=== PATIENT | male | born 1965 | race Caucasian/White ===

== ENCOUNTER 2019-11-28 09:29 | Emergency (ER) | payer MEDICAID ==
[~2019-11-28] VITALS: Ht 172.7 cm; Wt 75.0 kg
[~2019-11-28 09:29] MED LIST: GABA-531 MT
[2019-11-28] MEDS ORDERED: SODIUM CHLORIDE 0.9% 1,000 ML IV ONE ×2 (10:30→11:30)
[2019-11-28] MEDS ORDERED: CHLORDIAZEPOXIDE 25MG CAPSULE PO ONE (10:30)
[2019-11-28] MEDS ORDERED: LORAZEPAM 1MG TABLET PO ONE (10:30)
[2019-11-28] MEDS ORDERED: ONDANSETRON HCL 4MG/2ML INJ IV STA (10:30)
[2019-11-28] MEDS ORDERED: ACETAMINOPHEN 325MG TABLET PO ONE (10:45)
[2019-11-28 11:33] LABS: CHLORIDE 91 mEq/L (98-107); EOSINOPHILS % 0.8 % (0.0-5.0); HEMATOCRIT. 40.3 % (42.0-52.0); LYMPHOCYTES % 17.7 % (20.0-50.0); MEAN CORPUSCULAR HEMOGLOBIN 34.5 pg (28.0-32.0); MEAN CORPUSCULAR VOLUME 99.4 fL (80.0-94.0); MONOCYTES % 12.3 % (2.0-8.0); NEUTROPHILS % 68.2 % (40.0-76.0); PLATELET 150 x1000/uL (130-400); RED BLOOD CELL COUNT 4.06 mill/uL (4.7-6.1); RED CELL DISTRIBUTION WIDTH 12.7 % (11.6-14.6)
[2019-11-28 11:38] LABS: ETHANOL BLOOD 120 mg/dL
[2019-11-28 13:50] LABS: CLARITY URINE CLEAR (CLEAR); COLOR URINE DARK YELLOW (YELLOW); KETONES URINE 4+ (NEGATIVE); LEUKOCYTE ESTERASE URINE NEGATIVE (NEGATIVE); NITRITE URINE NEGATIVE (NEGATIVE); OCCULT BLOOD URINE TRACE (NEGATIVE); PROTEIN URINE 2+ (NEGATIVE); SPECIFIC GRAVITY URINE 1.025 (1.005-1.030)
[2019-11-28 14:00] VITALS: BP 130/88
[2019-11-28 14:48] LABS: *AMPHETAMINES SCREEN URINE NEGATIVE (NEGATIVE); *BARBITURATES SCREEN URINE NEGATIVE (NEGATIVE); *BENZODIAZEPINES SCREEN URINE PRESUMTIVE POSITIVE (NEGATIVE); *COCAINE SCREEN URINE NEGATIVE (NEGATIVE); CANNABINOID URINE SCREEN NEGATIVE (NEGATIVE)
[2019-11-28 14:49] LABS: METHADONE URINE SCREEN NEGATIVE (NEGATIVE); OPIATES URINE SCREEN NEGATIVE (NEGATIVE); PHENCYCLIDINE URINE SCREEN NEGATIVE (NEGATIVE)
[2019-11-28 14:49] LABS: CREATINE KINASE 213 IU/L (39-308)
== END 2019-11-28 14:32 | disposition home or self-care (01) ==
LOC: ER 09:41
DX: K85.90 Acute pancreatitis without necrosis or infection, unspecified (principal); F10.239 Alcohol dependence with withdrawal, unspecified; G40.909 Epilepsy, unspecified, not intractable, without status epilepticus; F20.9 Schizophrenia, unspecified; F32.9 Major depressive disorder, single episode, unspecified; R94.5 Abnormal results of liver function studies; Y90.6 Blood alcohol level of 120-199 mg/100 ml; W18.2XXA Fall in (into) shower or empty bathtub, initial encounter; Y93.89 Activity, other specified; Y92.018 Other place in single-family (private) house as the place of occurrence of the external cause
CPT/HCPCS: 36415; 74176; 80053; 80305; 80320; 81003; 82550; 83690; 85025; 96374; 99284; J2405; J7030; G0480

== ENCOUNTER 2020-06-09 21:03 | Emergency (ER) | payer MEDICAID ==
[~2020-06-09] VITALS: Ht 170.2 cm; Wt 70.0 kg
[2020-06-09] MEDS ORDERED: FAMOTIDINE 20MG/2ML VIAL IV STA (22:52)
[2020-06-09] MEDS ORDERED: ONDANSETRON HCL 4MG/2ML INJ IV STA (22:52)
[2020-06-09] MEDS ORDERED: MAGNESIUM 2 G PREMIX 50 ML IV ONE (23:00)
[2020-06-09] MEDS ORDERED: LORAZEPAM 2MG/ML CPJ IV ONE (23:00)
[2020-06-09] MEDS ORDERED: FOLIC ACID 1 MG, THIAMINE HCL 100 MG, MVI, ADULT NO.1 10 ML in DEXTROSE 5% WATER 1,000 ML IV ONE ×4 (23:00)
[2020-06-09 23:46] LABS: CHLORIDE 96 mEq/L (98-107)
[2020-06-09 23:50] LABS: ETHANOL BLOOD < 10 mg/dL; HEMATOCRIT. 38.9 % (42.0-52.0); HEMOGLOBIN. 13.2 g/dL (14.0-18.0); MEAN CORPUSCULAR HEMOGLOBIN 35.1 pg (28.0-32.0); MEAN CORPUSCULAR VOLUME 103.8 fL (80.0-94.0); MEAN PLATELET VOLUME 7.3 fl (7.4-10.4); PLATELET 117 x1000/uL (130-400); RED BLOOD CELL COUNT 3.74 mill/uL (4.7-6.1); RED CELL DISTRIBUTION WIDTH 14.1 % (11.6-14.6)
[2020-06-10 01:06] LABS: PLATELET ESTIMATE DECREASED
[2020-06-10 03:12] VITALS: BP 146/98
== END 2020-06-10 03:24 | disposition home or self-care (01) ==
LOC: ER 21:15
DX: F10.239 Alcohol dependence with withdrawal, unspecified (principal); K85.20 Alcohol induced acute pancreatitis without necrosis or infection; Y90.0 Blood alcohol level of less than 20 mg/100 ml
CPT/HCPCS: 36415; 80053; 80320; 83690; 85025; 93005; 96365; 96366; 96368; 96375; 99284; J2060; J2405; J3411; J3475; J3490; J7070; G0480

== ENCOUNTER 2020-06-30 09:36 | Inpatient (IN) | payer MEDICAID ==
[~2020-06-30] VITALS: Ht 167.6 cm; Wt 73.9 kg
[2020-06-30] MEDS ORDERED: LORAZEPAM 2MG/ML CPJ IV ONE ×2 (10:00→14:30)
[2020-06-30] MEDS ORDERED: FOLIC ACID 1 MG, THIAMINE HCL 100 MG, MVI, ADULT NO.1 10 ML in DEXTROSE 5% WATER 1,000 ML IV ONE ×4 (10:00)
[2020-06-30] MEDS ORDERED: ONDANSETRON HCL 4MG/2ML INJ IV ONE (10:00)
[2020-06-30] MEDS ORDERED: MAGNESIUM 2 G PREMIX 50 ML IV ONE (10:00)
[2020-06-30 10:34] LABS: EOSINOPHILS % 0.5 % (0.0-5.0); HEMATOCRIT. 37.3 % (42.0-52.0); HEMOGLOBIN. 12.9 g/dL (14.0-18.0); LYMPHOCYTES % 15.6 % (20.0-50.0); MEAN CORPUSCULAR HEMOGLOBIN 35.3 pg (28.0-32.0); MEAN CORPUSCULAR VOLUME 102.4 fL (80.0-94.0); MEAN PLATELET VOLUME 7.4 fl (7.4-10.4); MONOCYTES % 6.2 % (2.0-8.0); NEUTROPHILS % 76.7 % (40.0-76.0); PLATELET 267 x1000/uL (130-400); RED BLOOD CELL COUNT 3.65 mill/uL (4.7-6.1); RED CELL DISTRIBUTION WIDTH 14.2 % (11.6-14.6)
[2020-06-30 10:43] LABS: CHLORIDE 100 mEq/L (98-107)
[2020-06-30 10:48] LABS: ETHANOL BLOOD 20 mg/dL
[2020-06-30] MEDS ORDERED: CHLORDIAZEPOXIDE 25MG CAPSULE PO ONE (11:00)
[2020-06-30 12:58] LABS: CLARITY URINE CLEAR (CLEAR); COLOR URINE YELLOW (YELLOW); KETONES URINE 4+ (NEGATIVE); LEUKOCYTE ESTERASE URINE NEGATIVE (NEGATIVE); NITRITE URINE NEGATIVE (NEGATIVE); OCCULT BLOOD URINE NEGATIVE (NEGATIVE); PROTEIN URINE NEGATIVE (NEGATIVE); SPECIFIC GRAVITY URINE 1.026 (1.005-1.030); UROBILINOGEN URINE 0.2 E.U./dL (0.2-1.0)
[2020-06-30 13:18] LABS: *BARBITURATES SCREEN URINE NEGATIVE (NEGATIVE)
[2020-06-30 13:19] LABS: *AMPHETAMINES SCREEN URINE NEGATIVE (NEGATIVE); *BENZODIAZEPINES SCREEN URINE NEGATIVE (NEGATIVE); *COCAINE SCREEN URINE NEGATIVE (NEGATIVE); METHADONE URINE SCREEN NEGATIVE (NEGATIVE); OPIATES URINE SCREEN NEGATIVE (NEGATIVE); PHENCYCLIDINE URINE SCREEN NEGATIVE (NEGATIVE)
[2020-06-30 13:20] LABS: CANNABINOID URINE SCREEN NEGATIVE (NEGATIVE)
[2020-06-30 15:22] VITALS: BP 140/94
[2020-06-30 15:37] VITALS: BP 140/94
[2020-06-30] MEDS ORDERED: IPRATROPIUM/ALBUTEROL 0.5-3(2.5)MG/3ML NEB HHN PRN (17:00)
[2020-06-30] MEDS ORDERED: ACETAMINOPHEN 325MG TABLET PO PRN ×2 (17:00)
[2020-06-30] MEDS ORDERED: ONDANSETRON HCL 4MG/2ML INJ IV PRN (17:00)
[2020-06-30] MEDS ORDERED: DOCUSATE SODIUM 100MG CAPSULE PO PRN (17:00)
[2020-06-30] MEDS ORDERED: CLONIDINE 0.1MG TABLET PO PRN (17:00)
[2020-06-30] MEDS ORDERED: HYDROCODONE/ACETAMINOPHEN 5/325MG TABLET PO PRN (17:00)
[2020-06-30] MEDS: SODIUM CHLORIDE 0.9% 1,000 ML IV SCH (17:38)
[2020-06-30 17:55] VITALS: BP 136/88
[2020-06-30 18:21] LABS: PHOSPHORUS 2.6 mg/dL (2.5-4.9)
[2020-06-30 18:48] LABS: HEPATITIS B SURFACE ANTIGEN NEGATIVE
[2020-06-30 18:49] LABS: VITAMIN B12 SERUM 742 pg/mL (211-911)
[2020-06-30] MEDS ORDERED: MVI, ADULT NO.1 10 ML, FOLIC ACID 1 MG, THIAMINE HCL 100 MG in SODIUM CHLORIDE 0.9% 1,0... IV NR ×4 (19:00)
[2020-06-30 19:18] LABS: HEPATITIS A AB IGM NEGATIVE (NEGATIVE)
[2020-06-30 19:26] LABS: FERRITIN 1963 ng/mL (22-322)
[2020-06-30 20:00] VITALS: BP 138/99
[2020-06-30 22:00] VITALS: BP 140/88
[2020-06-30] MEDS: CHLORDIAZEPOXIDE 25MG CAPSULE PO SCH (22:07)
[2020-07-01] VITALS (12 sets, daily range): BP systolic 133–149; BP diastolic 56–120
[2020-07-01] MEDS: SODIUM CHLORIDE 0.9% 1,000 ML IV SCH ×2 (02:50→22:30)
[2020-07-01] MEDS: LORAZEPAM 1MG TABLET PO PRN ×3 (03:38→16:40)
[2020-07-01] MEDS: CHLORDIAZEPOXIDE 25MG CAPSULE PO SCH ×3 (05:48→21:09)
[2020-07-01 07:06] LABS: BASOPHILS % 0.7 % (0.0-2.0); EOSINOPHILS % 1.8 % (0.0-5.0); HEMATOCRIT. 32.5 % (42.0-52.0); HEMOGLOBIN. 11.1 g/dL (14.0-18.0); LYMPHOCYTES % 17.8 % (20.0-50.0); MEAN CORPUSCULAR HEMOGLOBIN 35.3 pg (28.0-32.0); MEAN PLATELET VOLUME 7.7 fl (7.4-10.4); MONOCYTES % 8.9 % (2.0-8.0); NEUTROPHILS % 70.8 % (40.0-76.0); PLATELET 184 x1000/uL (130-400); RED BLOOD CELL COUNT 3.16 mill/uL (4.7-6.1); RED CELL DISTRIBUTION WIDTH 13.8 % (11.6-14.6)
[2020-07-01 07:32] LABS: CHLORIDE 102 mEq/L (98-107)
[2020-07-01] MEDS: GABAPENTIN 300MG CAPSULE PO SCH ×3 (08:44→18:04)
[2020-07-01] MEDS: THIAMINE HCL 100MG TABLET PO SCH (08:44)
[2020-07-01] MEDS: FOLIC ACID 1MG TABLET PO SCH (08:44)
[2020-07-01] MEDS: MULTIVITAMINS,THER W-MINERALS TABLET PO SCH (08:44)
[2020-07-01] MEDS ORDERED: MAGNESIUM 4 G PREMIX 100 ML IV NR (13:30)
[2020-07-01] MEDS ORDERED: NALT380S2 IM (14:25)
[2020-07-01] MEDS ORDERED: OLAN10TA32 PO (14:25)
[2020-07-01] MEDS ORDERED: BENZ0.5T43 MT (14:25)
[2020-07-01] MEDS ORDERED: FLUV100C2 PO (14:25)
[2020-07-01] MEDS ORDERED: MIRT-91 PO (14:25)
[2020-07-01] MEDS ORDERED: NON FORMULARY PATIENT HOME MED XX SCH (14:45)
[2020-07-01] MEDS: OLANZAPINE 10MG TABLET PO SCH (20:40)
[2020-07-01] MEDS: MIRTAZAPINE 15MG TABLET PO SCH (20:40)
[2020-07-01] MEDS: BENZTROPINE MESYLATE 0.5MG TABLET PO SCH (20:42)
[2020-07-02] VITALS (12 sets, daily range): BP systolic 103–136; BP diastolic 72–93
[2020-07-02] MEDS: CHLORDIAZEPOXIDE 25MG CAPSULE PO SCH ×3 (05:21→22:39)
[2020-07-02 06:20] LABS: BASOPHILS % 0.7 % (0.0-2.0); EOSINOPHILS % 2.4 % (0.0-5.0); HEMATOCRIT. 34.4 % (42.0-52.0); HEMOGLOBIN. 11.9 g/dL (14.0-18.0); LYMPHOCYTES % 16.5 % (20.0-50.0); MEAN CORPUSCULAR HEMOGLOBIN 35.8 pg (28.0-32.0); MEAN CORPUSCULAR VOLUME 103.1 fL (80.0-94.0); MEAN PLATELET VOLUME 7.8 fl (7.4-10.4); MONOCYTES % 7.6 % (2.0-8.0); NEUTROPHILS % 72.8 % (40.0-76.0); PLATELET 167 x1000/uL (130-400); RED BLOOD CELL COUNT 3.33 mill/uL (4.7-6.1)
[2020-07-02 06:51] LABS: CHLORIDE 105 mEq/L (98-107)
[2020-07-02] MEDS: THIAMINE HCL 100MG TABLET PO SCH (09:01)
[2020-07-02] MEDS: LORAZEPAM 1MG TABLET PO PRN (09:01)
[2020-07-02] MEDS: FOLIC ACID 1MG TABLET PO SCH (09:01)
[2020-07-02] MEDS: MULTIVITAMINS,THER W-MINERALS TABLET PO SCH (09:01)
[2020-07-02] MEDS: GABAPENTIN 300MG CAPSULE PO SCH ×3 (09:01→17:29)
[2020-07-02] MEDS: SODIUM CHLORIDE 0.9% 1,000 ML IV SCH ×2 (09:06→20:04)
[2020-07-02] MEDS: MIRTAZAPINE 15MG TABLET PO SCH (21:02)
[2020-07-02] MEDS: OLANZAPINE 10MG TABLET PO SCH (21:02)
[2020-07-02] MEDS: BENZTROPINE MESYLATE 0.5MG TABLET PO SCH (21:12)
[2020-07-03] VITALS (10 sets, daily range): BP systolic 125–139; BP diastolic 64–94
[2020-07-03] MEDS: SODIUM CHLORIDE 0.9% 1,000 ML IV SCH ×2 (04:13→14:50)
[2020-07-03] MEDS: CHLORDIAZEPOXIDE 25MG CAPSULE PO SCH ×2 (06:16→13:14)
[2020-07-03] MEDS: THIAMINE HCL 100MG TABLET PO SCH (09:33)
[2020-07-03] MEDS: MULTIVITAMINS,THER W-MINERALS TABLET PO SCH (09:33)
[2020-07-03] MEDS: FOLIC ACID 1MG TABLET PO SCH (09:33)
[2020-07-03] MEDS: GABAPENTIN 300MG CAPSULE PO SCH ×2 (09:33→13:14)
[2020-07-03] MEDS ORDERED: CHLO10CA71 MT (11:56)
[2020-07-03 12:00] LABS: BASOPHILS % 0.6 % (0.0-2.0); EOSINOPHILS % 2.8 % (0.0-5.0); HEMATOCRIT. 34.5 % (42.0-52.0); HEMOGLOBIN. 12.1 g/dL (14.0-18.0); LYMPHOCYTES % 18.4 % (20.0-50.0); MEAN CORPUSCULAR HEMOGLOBIN 36.4 pg (28.0-32.0); MEAN PLATELET VOLUME 8.1 fl (7.4-10.4); MONOCYTES % 8.1 % (2.0-8.0); NEUTROPHILS % 70.1 % (40.0-76.0); PLATELET 167 x1000/uL (130-400); RED BLOOD CELL COUNT 3.32 mill/uL (4.7-6.1); RED CELL DISTRIBUTION WIDTH 13.7 % (11.6-14.6)
[2020-07-03 12:09] LABS: CHLORIDE 109 mEq/L (98-107)
== END 2020-07-03 15:57 | disposition home or self-care (01) | DRG 775 ==
LOC: ER 09:45 → 3WST 10:55 → EDBEDREQTM 10:57 → EDBEDREQ 10:57 → ENRESERV 14:34
PROVIDERS: ADMIT Internal Medicine; ATTEND Internal Medicine
DX: F10.10 Alcohol abuse, uncomplicated (principal); R74.0 Nonspecific elevation of levels of transaminase and lactic acid dehydrogenase [LDH]; D53.9 Nutritional anemia, unspecified; T73.0XXA Starvation, initial encounter; R82.4 Acetonuria; F32.9 Major depressive disorder, single episode, unspecified; F20.9 Schizophrenia, unspecified; F43.10 Post-traumatic stress disorder, unspecified; R25.1 Tremor, unspecified; R81 Glycosuria; K76.0 Fatty (change of) liver, not elsewhere classified; Y90.9 Presence of alcohol in blood, level not specified; R56.9 Unspecified convulsions
CPT/HCPCS: 36415; 71045; 76700; 80048; 80053; 80061; 80076; 80305; 80307; 80320; 80329; 81003; 82550; 82607; 82728; 82746; 83036; 83540; 83550; 83735; 84100; 84443; 85025; 86705; 86709; 86803; 87340; 93005; 99291; J2060; J2405; J3411; J3475; J3490; J7030; J7070; G0480

== ENCOUNTER 2020-07-28 16:54 | Emergency (ER) | payer MEDICAID ==
[~2020-07-28] VITALS: Ht 167.6 cm; Wt 68.0 kg
[~2020-07-28 16:54] MED LIST changes: +BENZ0.5T43 MT; +CHLO10CA71 MT; +FLUV100C2 PO; +MIRT-91 PO; +NALT380S2 IM; +OLAN10TA32 PO
[2020-07-28] MEDS ORDERED: SODIUM CHLORIDE 0.9% 1,000 ML IV ONE (17:26)
[2020-07-28] MEDS ORDERED: ONDANSETRON HCL 4MG/2ML INJ IV STA (17:26)
[2020-07-28] MEDS ORDERED: FAMOTIDINE 20MG/2ML VIAL IV STA (17:26)
[2020-07-28] MEDS ORDERED: LORAZEPAM 2MG/ML CPJ IV ONE (17:30)
[2020-07-28 17:54] LABS: BASOPHILS % 0.7 % (0.0-2.0); EOSINOPHILS % 0.4 % (0.0-5.0); HEMATOCRIT. 37.2 % (42.0-52.0); HEMOGLOBIN. 12.9 g/dL (14.0-18.0); LYMPHOCYTES % 14.2 % (20.0-50.0); MEAN CORPUSCULAR HEMOGLOBIN 35.9 pg (28.0-32.0); MEAN CORPUSCULAR VOLUME 102.9 fL (80.0-94.0); MEAN PLATELET VOLUME 7.2 fl (7.4-10.4); MONOCYTES % 12.1 % (2.0-8.0); NEUTROPHILS % 72.6 % (40.0-76.0); PLATELET 101 x1000/uL (130-400); RED BLOOD CELL COUNT 3.61 mill/uL (4.7-6.1); RED CELL DISTRIBUTION WIDTH 13.3 % (11.6-14.6)
[2020-07-28 17:59] LABS: CHLORIDE 91 mEq/L (98-107); INR 1.2; PROTHROMBIN TIME 12.4 sec (9.6-11.0)
[2020-07-28 18:05] LABS: ETHANOL BLOOD 57 mg/dL
[2020-07-28] MEDS ORDERED: MAGNESIUM 2 G PREMIX 50 ML IV ONE (18:45)
[2020-07-28] MEDS ORDERED: POTASSIUM CHLORIDE 20MEQ TABLET SR PO ONE (18:45)
[2020-07-28 19:00] LABS: CLARITY URINE CLEAR (CLEAR); COLOR URINE DARK YELLOW (YELLOW); KETONES URINE 4+ (NEGATIVE); LEUKOCYTE ESTERASE URINE TRACE (NEGATIVE); NITRITE URINE NEGATIVE (NEGATIVE); OCCULT BLOOD URINE NEGATIVE (NEGATIVE); PROTEIN URINE 2+ (NEGATIVE); SPECIFIC GRAVITY URINE 1.022 (1.005-1.030)
[2020-07-28 19:15] LABS: *AMPHETAMINES SCREEN URINE NEGATIVE (NEGATIVE); CANNABINOID URINE SCREEN NEGATIVE (NEGATIVE); OPIATES URINE SCREEN NEGATIVE (NEGATIVE); PHENCYCLIDINE URINE SCREEN NEGATIVE (NEGATIVE)
[2020-07-28 19:16] LABS: *BARBITURATES SCREEN URINE NEGATIVE (NEGATIVE); *BENZODIAZEPINES SCREEN URINE PRESUMTIVE POSITIVE (NEGATIVE); *COCAINE SCREEN URINE NEGATIVE (NEGATIVE); METHADONE URINE SCREEN NEGATIVE (NEGATIVE)
[2020-07-28 20:50] VITALS: BP 131/95
== END 2020-07-28 21:24 | disposition home or self-care (01) ==
LOC: ER 17:20
DX: F10.129 Alcohol abuse with intoxication, unspecified (principal); E87.8 Other disorders of electrolyte and fluid balance, not elsewhere classified; Z79.899 Other long term (current) drug therapy; Y90.2 Blood alcohol level of 40-59 mg/100 ml
CPT/HCPCS: 36415; 71045; 80053; 80305; 80320; 81003; 83690; 83735; 84484; 85025; 85610; 93005; 96361; 96365; 96366; 96375; 99285; J2060; J2405; J3475; J3490; J7030; G0480

== ENCOUNTER 2020-10-08 17:47 | Emergency (ER) | payer MEDICAID, OTHER ==
[~2020-10-08] VITALS: Ht 167.6 cm; Wt 68.0 kg
[2020-10-08] MEDS ORDERED: LORAZEPAM 2MG/ML CPJ IV ONE (18:15)
[2020-10-08 18:40] LABS: BASOPHILS % 0.8 % (0.0-2.0); EOSINOPHILS % 0.2 % (0.0-5.0); HEMATOCRIT. 29.6 % (42.0-52.0); HEMOGLOBIN. 10.5 g/dL (14.0-18.0); LYMPHOCYTES % 8.7 % (20.0-50.0); MEAN CORPUSCULAR HEMOGLOBIN 34.9 pg (28.0-32.0); MEAN CORPUSCULAR VOLUME 98.2 fL (80.0-94.0); MEAN PLATELET VOLUME 7.7 fl (7.4-10.4); MONOCYTES % 14.6 % (2.0-8.0); NEUTROPHILS % 75.7 % (40.0-76.0); PLATELET 152 x1000/uL (130-400); RED BLOOD CELL COUNT 3.02 mill/uL (4.7-6.1); RED CELL DISTRIBUTION WIDTH 14.5 % (11.6-14.6)
[2020-10-08 18:50] LABS: CHLORIDE 87 mEq/L (98-107); INR 1.3; PROTHROMBIN TIME 13.8 sec (9.6-11.0)
[2020-10-08 18:53] LABS: ETHANOL BLOOD 86 mg/dL
[2020-10-09 02:27] VITALS: BP 119/77
== END 2020-10-09 04:08 | disposition short-term general hospital (02) ==
LOC: ER 17:47 → CANBEDREQ 10-09 01:34 → ER 10-09 04:08
DX: F10.239 Alcohol dependence with withdrawal, unspecified (principal); Y90.4 Blood alcohol level of 80-99 mg/100 ml; M48.54XA Collapsed vertebra, not elsewhere classified, thoracic region, initial encounter for fracture; K66.1 Hemoperitoneum; Z79.899 Other long term (current) drug therapy
CPT/HCPCS: 36415; 70450; 70486; 71045; 71250; 72125; 74176; 80053; 80320; 83605; 85025; 85610; 93005; 96374; 99285; J2060; G0480

== ENCOUNTER 2021-02-13 21:27 | Inpatient (IN) | payer MEDICAID, OTHER ==
[~2021-02-13] VITALS: Ht 167.6 cm; Wt 68.9 kg
[~2021-02-13 21:27] MED LIST changes: -GABA-531 MT; +GABA-532 MT
[2021-02-13] MEDS ORDERED: MORPHINE SULFATE 4 MG/ML CPJ (NOT FOR IM USE) IV STA (23:19)
[2021-02-13] MEDS ORDERED: ONDANSETRON HCL 4MG/2ML INJ IV STA (23:19)
[2021-02-13] MEDS ORDERED: SODIUM CHLORIDE 0.9% 1,000 ML IV ONE (23:30)
[2021-02-13 23:44] LABS: BASOPHILS % 1.2 % (0.0-2.0); HEMATOCRIT. 28.5 % (42.0-52.0); HEMOGLOBIN. 9.7 g/dL (14.0-18.0); LYMPHOCYTES % 16.7 % (20.0-50.0); MEAN CORPUSCULAR HEMOGLOBIN 35.5 pg (28.0-32.0); MEAN CORPUSCULAR VOLUME 104.5 fL (80.0-94.0); MEAN PLATELET VOLUME 6.9 fl (7.4-10.4); MONOCYTES % 8.7 % (2.0-8.0); NEUTROPHILS % 72.4 % (40.0-76.0); PLATELET 329 x1000/uL (130-400); RED BLOOD CELL COUNT 2.73 mill/uL (4.7-6.1); RED CELL DISTRIBUTION WIDTH 17.1 % (11.6-14.6)
[2021-02-13 23:49] LABS: CHLORIDE 108 mEq/L (98-107)
[2021-02-14 00:03] LABS: INR 1.2; PROTHROMBIN TIME 12.5 sec (9.6-11.0)
[2021-02-14 00:52] LABS: CLARITY URINE CLEAR (CLEAR); COLOR URINE YELLOW (YELLOW); KETONES URINE NEGATIVE (NEGATIVE); LEUKOCYTE ESTERASE URINE NEGATIVE (NEGATIVE); NITRITE URINE NEGATIVE (NEGATIVE); OCCULT BLOOD URINE NEGATIVE (NEGATIVE); PROTEIN URINE NEGATIVE (NEGATIVE); SPECIFIC GRAVITY URINE 1.004 (1.005-1.030); UROBILINOGEN URINE 0.2 E.U./dL (0.2-1.0)
[2021-02-14] MEDS ORDERED: IOHEXOL-300 100 ML BOTTLE ONE (02:16)
[2021-02-14 09:00] VITALS: BP 129/81
[2021-02-14 09:30] VITALS: BP 129/81
[2021-02-14] MEDS ORDERED: ONDANSETRON HCL 4MG/2ML INJ IV PRN (11:30)
[2021-02-14 12:00] VITALS: BP 121/80
[2021-02-14] MEDS ORDERED: ACETAMINOPHEN 325MG TABLET PO PRN (12:30)
[2021-02-14 16:00] VITALS: BP 93/58
[2021-02-14 20:00] VITALS: BP 115/78
[2021-02-14] MEDS: LEVETIRACETAM 500MG TABLET PO SCH (20:47)
[2021-02-14] MEDS: KETOROLAC 15MG/ML VIAL IV PRN (20:47)
[2021-02-15] VITALS: BP 114/71
[2021-02-15 04:00] VITALS: BP 111/73
[2021-02-15 05:38] LABS: CHLORIDE 105 mEq/L (98-107)
[2021-02-15 06:08] LABS: BASOPHILS % 0.4 % (0.0-2.0); HEMATOCRIT. 26.8 % (42.0-52.0); HEMOGLOBIN. 9.1 g/dL (14.0-18.0); LYMPHOCYTES % 14.3 % (20.0-50.0); MEAN CORPUSCULAR HEMOGLOBIN 35.9 pg (28.0-32.0); MEAN CORPUSCULAR VOLUME 105.9 fL (80.0-94.0); MEAN PLATELET VOLUME 7.3 fl (7.4-10.4); MONOCYTES % 8.5 % (2.0-8.0); NEUTROPHILS % 75.8 % (40.0-76.0); PLATELET 287 x1000/uL (130-400); RED BLOOD CELL COUNT 2.53 mill/uL (4.7-6.1); RED CELL DISTRIBUTION WIDTH 17.6 % (11.6-14.6)
[2021-02-15] MEDS: KETOROLAC 15MG/ML VIAL IV PRN (06:21)
[2021-02-15 08:00] VITALS: BP 123/75
[2021-02-15] MEDS ORDERED: LIDOCAINE HCL 1% 20ML VIAL (Pyxis) INJ ONE (09:16)
[2021-02-15] MEDS ORDERED: SODIUM BICARBONATE 4% (2.4MEQ) 5ML VIAL IV ONE (09:17)
[2021-02-15] MEDS: LEVETIRACETAM 500MG TABLET PO SCH ×2 (11:15→21:18)
[2021-02-15 12:00] VITALS: BP 110/69
[2021-02-15] MEDS ORDERED: LIDOCAINE HCL/EPINEPHRINE 1%-EPI 1:100,000 20 ML VIAL INFIL SCH (14:00)
[2021-02-15 16:00] VITALS: BP 105/61
[2021-02-15 20:00] VITALS: BP 106/73
[2021-02-15] MEDS ORDERED: MIRT-111 PO (20:28)
[2021-02-15] MEDS ORDERED: OLAN10TA3 PO (20:28)
[2021-02-15] MEDS ORDERED: BENZ1TAB7 GT (20:28)
[2021-02-15] MEDS ORDERED: TOPUD MT (20:28)
[2021-02-15] MEDS: HYDROCODONE/ACETAMINOPHEN 10/325MG TABLET PO PRN (21:15)
[2021-02-16] VITALS (7 sets, daily range): BP systolic 97–127; BP diastolic 61–79
[2021-02-16] MEDS: HYDROCODONE/ACETAMINOPHEN 10/325MG TABLET PO PRN (06:10)
[2021-02-16] MEDS: LEVETIRACETAM 500MG TABLET PO SCH (09:04)
== END 2021-02-16 20:45 | DRG 951 ==
LOC: ER 21:27 → 6EST 02-14 04:36 → ENRESERV 02-14 07:21
PROVIDERS: ADMIT Internal Medicine; ATTEND Internal Medicine
PROC: 0W9G3ZZ Drainage of Peritoneal Cavity, Percutaneous Approach (ICD-10-PCS; principal; 2021-02-15)
PROC: 0KBP0ZZ Excision of Left Hip Muscle, Open Approach (ICD-10-PCS; 2021-02-15)
PROC: 0KBN0ZZ Excision of Right Hip Muscle, Open Approach (ICD-10-PCS; 2021-02-15)
DX: K74.60 Unspecified cirrhosis of liver (principal); E43 Unspecified severe protein-calorie malnutrition; L89.154 Pressure ulcer of sacral region, stage 4; R18.8 Other ascites; E87.8 Other disorders of electrolyte and fluid balance, not elsewhere classified; F20.9 Schizophrenia, unspecified; K52.9 Noninfective gastroenteritis and colitis, unspecified; K80.20 Calculus of gallbladder without cholecystitis without obstruction; T24.032A Burn of unspecified degree of left lower leg, initial encounter; Z20.822 Contact with and (suspected) exposure to COVID-19; G40.909 Epilepsy, unspecified, not intractable, without status epilepticus; F43.10 Post-traumatic stress disorder, unspecified; D64.9 Anemia, unspecified; F10.10 Alcohol abuse, uncomplicated; Y90.9 Presence of alcohol in blood, level not specified; R74.01 Elevation of levels of liver transaminase levels; L85.3 Xerosis cutis; Z79.1 Long term (current) use of non-steroidal anti-inflammatories (NSAID); Z79.899 Other long term (current) drug therapy; Z68.24 Body mass index [BMI] 24.0-24.9, adult; Y93.89 Activity, other specified; Y92.89 Other specified places as the place of occurrence of the external cause; Y99.8 Other external cause status
CPT/HCPCS: 36415; 49083; 74177; 80048; 80053; 81003; 82040; 84134; 85025; 87426; 93005; 97161; 99285; J1885; J3490; J7030; Q9967

== ENCOUNTER 2021-06-30 18:24 | Emergency (ER) | payer MEDICAID, OTHER ==
[~2021-06-30] VITALS: Ht 170.2 cm; Wt 72.0 kg
[~2021-06-30 18:24] MED LIST changes: +BENZ1TAB7 GT; +OLAN10TA3 PO; -OLAN10TA32 PO; +TOPUD MT
[2021-06-30] MEDS ORDERED: LORAZEPAM 2MG/ML CPJ IV ONE (19:00)
[2021-06-30] MEDS ORDERED: SODIUM CHLORIDE 0.9% 1,000 ML IV ONE (19:00)
[2021-06-30 19:22] LABS: BASOPHILS % 1.1 % (0.0-2.0); EOSINOPHILS % 0.4 % (0.0-5.0); HEMATOCRIT. 33.3 % (42.0-52.0); HEMOGLOBIN. 11.8 g/dL (14.0-18.0); LYMPHOCYTES % 18.7 % (20.0-50.0); MEAN CORPUSCULAR HEMOGLOBIN 35.3 pg (28.0-32.0); MEAN CORPUSCULAR VOLUME 99.8 fL (80.0-94.0); MEAN PLATELET VOLUME 7.2 fl (7.4-10.4); MONOCYTES % 12.4 % (2.0-8.0); NEUTROPHILS % 67.4 % (40.0-76.0); PLATELET 68 x1000/uL (130-400); RED BLOOD CELL COUNT 3.34 mill/uL (4.7-6.1); RED CELL DISTRIBUTION WIDTH 15.9 % (11.6-14.6)
[2021-06-30 19:30] LABS: CHLORIDE 98 mEq/L (98-107)
[2021-06-30] MEDS ORDERED: LEVETIRACETAM 1000MG PREMIX 100 ML IV ONE (19:30)
[2021-06-30 20:16] LABS: ETHANOL BLOOD 350 mg/dL
[2021-06-30 23:38] LABS: CLARITY URINE CLEAR (CLEAR); COLOR URINE DARK YELLOW (YELLOW); KETONES URINE 2+ (NEGATIVE); LEUKOCYTE ESTERASE URINE TRACE (NEGATIVE); NITRITE URINE NEGATIVE (NEGATIVE); OCCULT BLOOD URINE TRACE (NEGATIVE); PROTEIN URINE 1+ (NEGATIVE); SPECIFIC GRAVITY URINE 1.016 (1.005-1.030)
[2021-06-30 23:54] LABS: *AMPHETAMINES SCREEN URINE NEGATIVE (NEGATIVE); *BARBITURATES SCREEN URINE NEGATIVE (NEGATIVE); *BENZODIAZEPINES SCREEN URINE NEGATIVE (NEGATIVE); *COCAINE SCREEN URINE NEGATIVE (NEGATIVE); METHADONE URINE SCREEN NEGATIVE (NEGATIVE); OPIATES URINE SCREEN NEGATIVE (NEGATIVE); PHENCYCLIDINE URINE SCREEN NEGATIVE (NEGATIVE)
[2021-06-30 23:55] LABS: CANNABINOID URINE SCREEN NEGATIVE (NEGATIVE)
[2021-07-01] MEDS ORDERED: CHLORDIAZEPOXIDE 25MG CAPSULE PO ONE (09:15)
[2021-07-01] MEDS ORDERED: CHLORDIAZEPOXIDE 5 MG CAPSULE PO NR (09:45)
[2021-07-01 10:34] VITALS: BP 101/64
== END 2021-07-01 10:36 | disposition home or self-care (01) ==
LOC: ER 18:24
DX: F10.129 Alcohol abuse with intoxication, unspecified (principal); Y90.8 Blood alcohol level of 240 mg/100 ml or more; D61.818 Other pancytopenia; I10 Essential (primary) hypertension; G92 Toxic encephalopathy; R56.9 Unspecified convulsions
CPT/HCPCS: 36415; 70450; 72220; 80053; 80305; 80307; 80320; 80329; 81003; 85025; 93005; 96374; 96375; 99285; J1953; J2060; J7030; Z7610; G0480